=== PATIENT | female | born 1985 | race Two or more races ===

== ENCOUNTER 2018-05-23 22:37 | Emergency (ER) | payer SELFPAY ==
[2018-05-24] MEDS ORDERED: DEXAMETHASONE SOD PHOS INJ 10 MG/1 ML VIAL IM ONE (00:28)
[2018-05-24] MEDS ORDERED: PENICILLIN V POTASSIUM 500 MG TABLET PO ONE (00:28)
[2018-05-24] MEDS ORDERED: ACETAMINOPHEN 325 MG TABLET PO ONE (00:29)
--- NOTE | 2018-05-24 00:36 | ER Document Report ---
HPI - HPI Time Seen by Provider: 05/24/18 00:28 Pain Level: 5 Context: Patient is a 33-year-old female that comes to the emergency department for chief complaint of 2 days of feeling chills, feeling pain along "the bottom of the neck in front of the neck on the left side". She states she feels like she has been having fevers and headaches as well. Denies nausea, vomiting, difficulty breathing, abdominal pain, chest pain. Has not had the influenza vaccine. LMP within the past month. Denies any medical problems. - REPRODUCTIVE Reproductive: DENIES: : Past Medical History - General Information source: Patient, Relative - Social History Smoking Status: Never Smoker Frequency of alcohol use: None Drug Abuse: None Lives with: Family Family History: Reviewed & Not Pertinent - Medical History Medical History: Negative Surgical Hx: Negative - Immunizations Immunizations up to date: Yes Hx Diphtheria, Pertussis, Tetanus Vaccination: Yes Vertical Provider Document - CONSTITUTIONAL General Appearance: WD/WN, No Apparent Distress - INFECTION CONTROL TRAVEL OUTSIDE OF THE [place] IN LAST 30 DAYS: No - HEENT HEENT: Atraumatic, Normocephalic. negative: Normal ENT Exam - Exudative pharyngitis with a rash of the posterior pharynx but no uvular edema or swelling, no peritonsillar abscess, normal tongue, clear airway. Normal ears. Normal nasal and sinus exams. - NECK Neck: Other - Bilateral anterior cervical adenopathy, slightly worse on the left. No submandibular swelling - RESPIRATORY Respiratory: Breath Sounds Normal, No Respiratory Distress - CARDIOVASCULAR Cardiovascular: Regular Rate, Regular Rhythm - GI/ABDOMEN Gastrointestinal: Abdomen Soft, Abdomen Non-Tender - BACK Back: Normal Inspection - MUSCULOSKELETAL/EXTREMETIES Musculoskeletal/Extremeties: MAEW, FROM, Non-Tender - NEURO Level of Consciousness: Awake, Alert, Appropriate - DERM Integumentary: Warm, Dry, No Rash Course - Re-evaluation Re-evalutation: Patient is mainly [place]-speaking but speaks some Filipino. Significant other speaks very good Filipino, she requests to interpret. Patient has obvious exudative pharyngitis, lymphadenopathy, she reports this feels worse on the left side, however I do not see any evidence of peritonsillar abscess, uvular edema, or airway obstruction. No submandibular swelling either. Discussed swabbing for strep, however this was declined. Instead we will treat her because she fulfills all [facility] criteria with penicillin, given a dose of dexamethasone here, given Tylenol. Temperature is 100.0 here. She has no reported headache on my evaluation, has no nuchal rigidity, clear lungs, otherwise unremarkable exam. Discussed expectations including possibilities of mono, they requested details, these were provided on instruction and discussed as well. Discussed return precautions. They state understanding and agreement with plan. - Vital Signs Vital signs: Temp Pulse Resp BP Pulse Ox 100.0 F 96 22 H 106/67 98 05/23/18 22:58 05/23/18 22:58 05/23/18 22:58 05/23/18 22:58 05/23/18 22:58 Discharge - Discharge Clinical Impression: Exudative pharyngitis, Anterior cervical adenopathy Condition: Stable Disposition: HOME, SELF-CARE Additional Instructions: Your evaluation is very suggestive of strep throat pharyngitis. There is still a possibility that this is a virus, if it is a virus symptoms will last longer and you should follow the precautions listed for mono listed below. However more likely this is bacterial based on your exam and this should resolve over the next couple of days. Hydrate, rest, drink plenty fluids, take Tylenol or ibuprofen for pain. Complete the antibiotics. Return for any concerning symptoms. This could be a virus called mononucleosis ("mono"). This can often last several weeks. Typically, a week or two of tiredness precedes a sore throat, swollen glands, fever, and aches. Sometimes there's a rash. In severe cases, swollen spleen and liver develop. There is no cure for mononucleosis. You should rest, drink plenty of fluids, and avoid contact sports until you are better. A follow-up examination is usually done in about a week. Further laboratory testing may be necessary then. See the doctor if there is significant worsening of the symptoms or onset of new symptoms such as severe headache, stiff neck, generalized abdominal pain, or faintness. Prescriptions: Penicillin V Potassium [Penicillin Vk 500 mg Tablet] 500 mg PO BID #20 tablet Forms: Return to Work
[2018-05-24 01:29] VITALS: BP 102/58
== END 2018-05-24 01:29 | disposition home or self-care (01) ==
LOC: ER 22:37
DX: J02.9 Acute pharyngitis, unspecified (principal); R59.0 Localized enlarged lymph nodes; R68.83 Chills (without fever)
CPT/HCPCS: 99283; 96372; J1100